=== PATIENT | female | born 1985 | race Caucasian/White ===

== ENCOUNTER 2021-05-18 15:15 | Outpatient (CLI) | payer OTHER, SELFPAY ==
[2021-05-18 15:32] VITALS: BP 134/91; PULSE 71; RESP 18; TEMP 36.9; O2SAT 98; BMI 48.8
[2021-05-18 16:50] VITALS: BP 156/106; PULSE 85; RESP 17; TEMP 37.4; O2SAT 99
[2021-05-18 17:50] VITALS: BP 140/96; PULSE 79; RESP 18; TEMP 37.5; O2SAT 99
== END 2021-05-18 15:16 | disposition home or self-care (01) ==
LOC: OPS 15:16
PROVIDERS: PCP Registered Nurse; Visit Provider Nurse Practitioner Family
DX: U07.1 COVID-19 (principal)

== ENCOUNTER → 2021-08-11 15:17 | Outpatient (BNVA) | payer OTHER, SELFPAY | PROVIDERS: PCP Registered Nurse; Visit Provider Podiatrist Foot & Ankle Surgery | DX: M79.671 Pain in right foot (principal) | CPT/HCPCS: 73630 ==